=== PATIENT | female | born 1990 | race Caucasian/White ===

== ENCOUNTER → 2020-03-09 | Outpatient (CLI) | payer MEDICAID, SELFPAY ==
--- NOTE | 2020-03-10 19:21 | US ---
EXAM DESCRIPTION: Breast,Left: Ultrasound CLINICAL HISTORY: 29 yearsFemaleUNSPECIFIED LUMP IN BREAST . No personal history of breast cancer. Pea-sized nodule near the axillary tail of the left breast. Mother with breast cancer age 44. Menarche age 14. No childbirth. Premenopausal. No HRT. Lifetime risk of developing breast cancer (Tyrer-Cuzick model)(%): Not calculated due to age less than 35 years. COMPARISON: No prior breast ultrasound or digital breast mammography. TECHNIQUE: Transcutaneous scanning of the left breast utilizing nielsen-scale and Doppler modes. Scanning performed by the line and frame poler and Dr. Tran FINDINGS: Ultrasound: Scanning left axilla and axillary tail of the left breast. Small palpable nodule. No measurable solid mass or cyst when scanning over the palpable mass. Also nonvisualization of mass using a standoff pad. No fluid collection or large calcifications. IMPRESSION: No suspicious or significant imaging findings. BI-RADS CATEGORY: 1 - NEGATIVE RECOMMENDATIONS: FOLLOW UP: The region of interest should be followed on clinical grounds and if noted to change in size or character, a directed follow-up ultrasound examination may be performed. Written communication explaining the findings and follow-up, will be mailed to the patient and referring health care provider. The FINDINGS and the FOLLOW-UP plan were reviewed in person with the patient after the examination. According to the [employer], yearly mammograms are recommended starting at age 40 and continuing as long as a woman is in good health. Any breast change noted on a breast self-exam should be reported promptly to the patient's healthcare provider. Breast MRI is recommended for women with an approximately 20-25% or greater lifetime risk of breast cancer, including women with a strong family history of breast or ovarian cancer and women who have been treated for Hodgkin's disease. Electronically signed by: Matthew Tran MD 03/10/2020 7:19 PM CDT
== END ==
LOC: US 15:10
PROVIDERS: ATTEND Nurse Practitioner Acute Care
DX: N63.32 Unspecified lump in axillary tail of the left breast (principal); Z80.3 Family history of malignant neoplasm of breast